=== PATIENT | female | born 1975 | race Caucasian/White ===

== ENCOUNTER 2023-06-14 14:42 | Outpatient (CLI) | payer BC, SELFPAY ==
--- NOTE | ~2023-06-14 | MR_ITS ---
MR breast BI wo/w con 06/15/2023 08:37 [employer]TERN[employer]KER HAND INDICATION: Personal history of left breast cancer status post left mastectomy. TECHNIQUE: MRI of the breasts perform using standard protocol pre-and post IV contrast with the follo wing sequences: Axial T2 STIR, axial T1, axial vibrant T1 with fat suppression precontrast and multip hasic postcontrast. COMPARISON: Mammogram and ultrasound dated 11/30/2012 FINDINGS: Right breast: There are bilateral breast implants. There are small cysts of the right breast. There i s a small 7 mm mass in the outer aspect of the left breast which is T1 hyperintense and T2 isointense without enhancement, likely benign. There is minimal background parenchymal enhancement. No enhanci ng lesions following contrast administration. No areas of enhancement meeting threshold criteria on CAD analysis. No evidence of signal abnormalities in the axillary or internal mammary node distribut ions. LEFT BREAST: No signal abnormalities on precontrast sequences. There is minimal background parenchym al enhancement. There is a small 4 mm focus of rapid washout enhancement in the upper outer quadrant of the left breast posteriorly, most likely a lymph node, although too small to characterize. IMPRESSION: 1: Right breast: Small nonenhancing 7 mm mass anterior outer aspect of the right breast, likely emi gn. Recommend correlation with diagnostic right mammogram and possible ultrasound. BI-RADS Category 0 . 2: Left breast: Small focus measuring 4 mm in the upper outer quadrant of the left breast posteriorl y with rapid washout enhancement. This likely represents a benign lymph node, although too small to c haracterize. Recommend correlation with targeted ultrasound. BI-RADS Category 0. Reviewed, dictated and finalized at location A. ERNMAKER HAND IMPRESSION: 1: Right breast: Small nonenhancing 7 mm mass anterior outer aspect of the rig ht breast, likely benign. Recommend correlation with diagnostic right mammogram and possible ultrasound. BI-RADS Category 0. 2: Left breast: Small focus measuring 4 mm in the upper outer quadrant of the left breast posteriorly with rapid washout enhancement. This likely represents a benign lymph node, although too small to characterize. Recommend correlation with targeted ultrasound. BI-RADS Category 0.
== END 2023-06-14 14:43 | disposition home or self-care (01) ==
PROVIDERS: PCP Obstetrics & Gynecology Gynecology; Visit Provider Nurse Practitioner Family
DX: R92.8 Other abnormal and inconclusive findings on diagnostic imaging of breast (principal); Z85.3 Personal history of malignant neoplasm of breast
CPT/HCPCS: 77049; A9577; C8908

== ENCOUNTER 2024-04-02 15:38 | Outpatient (CLI) | payer BC, SELFPAY ==
--- NOTE | ~2024-04-02 | US_ITS ---
EXAMINATION: US soft tissue head and neck DATE: 04/02/2024 16:05 INDICATION: Focal left neck swelling. TECHNIQUE: Multiple grayscale and Doppler ultrasound images of the head and neck were obtained. COMPARISON: None FINDINGS: There is a normal superficial lymph node in the patient's left neck. IMPRESSION: 1. No abnormal neck mass or lymphadenopathy in the patient's area of concern. Reviewed, dictated and finalized at location A.
== END 2024-04-02 15:39 | disposition home or self-care (01) ==
LOC: ANHIMG 15:39
PROVIDERS: PCP Nurse Practitioner Family; Visit Provider Obstetrics & Gynecology Gynecology
DX: R22.1 Localized swelling, mass and lump, neck (principal)
CPT/HCPCS: 76536